=== PATIENT | male | born 1965 | race Caucasian/White ===

== ENCOUNTER → 2017-01-23 | Outpatient (CLI) | payer SELFPAY ==
[~2017-01-23] MED LIST: PROZAC40 MG
== END ==
LOC: BHSO 08:30
DX: F90.0 Attention-deficit hyperactivity disorder, predominantly inattentive type (principal)

== ENCOUNTER → 2017-07-31 | Outpatient (CLI) | payer SELFPAY | LOC: BHSO 08:40 | DX: F90.0 Attention-deficit hyperactivity disorder, predominantly inattentive type (principal) ==

== ENCOUNTER → 2018-02-18 | Outpatient (CLI) | payer SELFPAY | LOC: BHSO 14:22 | DX: F90.0 Attention-deficit hyperactivity disorder, predominantly inattentive type (principal) | CPT/HCPCS: G0463 ==

== ENCOUNTER → 2018-08-13 | Outpatient (CLI) | payer SELFPAY | LOC: BHSO 08:47 | DX: F90.0 Attention-deficit hyperactivity disorder, predominantly inattentive type (principal) | CPT/HCPCS: G0463 ==

== ENCOUNTER → 2019-02-04 | Outpatient (CLI) | payer SELFPAY | LOC: BHSO 08:47 | DX: F90.0 Attention-deficit hyperactivity disorder, predominantly inattentive type (principal) | CPT/HCPCS: G0463 ==

== ENCOUNTER → 2019-07-29 | Outpatient (CLI) | payer SELFPAY | LOC: BHSO 08:57 | DX: F90.0 Attention-deficit hyperactivity disorder, predominantly inattentive type (principal) | CPT/HCPCS: G0463 ==

== ENCOUNTER → 2019-08-11 | Outpatient (CLI) | payer OTHER | LOC: COL.RAD 12:49 | DX: M25.461 Effusion, right knee (principal); M22.41 Chondromalacia patellae, right knee; S83.241A Other tear of medial meniscus, current injury, right knee, initial encounter ==

== ENCOUNTER → 2019-09-26 | Outpatient (CLI) | payer OTHER | LOC: COL.VAS 11:45 | DX: M71.21 Synovial cyst of popliteal space [Baker], right knee (principal); Z96.651 Presence of right artificial knee joint ==

== ENCOUNTER → 2021-01-25 | Outpatient (CLI) | payer BC | LOC: COL.RAD 06:50 | DX: M47.812 Spondylosis without myelopathy or radiculopathy, cervical region (principal); M48.02 Spinal stenosis, cervical region ==

== ENCOUNTER 2021-07-31 10:17 | Outpatient (CLI) | payer BC ==
[~2021-07-31] VITALS: Ht 175.3 cm; Wt 75.4 kg
[2021-07-31] VITALS (9 sets, daily range): BP systolic 104–126; BP diastolic 67–95; PULSE 81–93; TEMP 97.4
[2021-07-31] MEDS ORDERED: FLOMAX 0.40.4 MG/CAP PO (11:56)
[2021-07-31] MEDS ORDERED: RITALIN 20M20 MG/TAB PO (11:57)
== END 2021-07-31 15:16 ==
LOC: EUO 10:17
DX: U07.1 COVID-19 (principal); E66.9 Obesity, unspecified
CPT/HCPCS: M0245